=== PATIENT | male | born 1980 | race African-American/Black ===

== ENCOUNTER 2018-03-30 08:50 | Emergency (ER) | payer BC ==
[2018-03-30 09:20] LABS: Urine Blood 2+ (NEG); Urine Glucose NEGATIVE (NEG); Urine Protein 1+ (NEG)
[2018-03-30] MEDS ORDERED: KETOROLAC 30 MG/ML INJ ONE (09:37)
[2018-03-30 09:49] LABS: Urine Bacteria <20 /HPF (NONE SEEN); Urine Culture Reflex Order REFLEXED; Urine Trichomonas PRESENT (NONE SEEN)
--- NOTE | 2018-03-30 10:40 | EDPHYS ---
Physician Documentation [facility] Name: Bj Stringer II Age: 37 yrs Sex: Male : 1980 Arrival Date: 03/30/2018 Time: 08:53 Bed 20 Private MD: ED Physician Sanjiv Powell HPI: 03/30 09:05 This 37 yrs old Black Male presents to ER via Ambulatory with complaints of Back Pain. cp 09:05 The patient presents with pain that is acute, with no known mechanism of injury. The cp symptoms are located in the low back. 09:05 Onset: The symptoms/episode began/occurred 1 week(s) ago. cp 09:05 The pain radiates to the back of bilateral legs. Associated signs and symptoms: cp Pertinent positives: tingling, Pertinent negatives: abdominal pain, constipation, dysuria, fever, hematuria, incontinence, numbness, urinary retention, weakness. Severity of symptoms: in the emergency department the symptoms are unchanged, despite home interventions. Historical: - Allergies: 09:00 No Known Allergies; hb - Home Meds: 09:00 None [Active]; hb - PMHx: 09:00 None; hb - PSHx: 09:00 Finger - Left Ring, Right Index; hb - Immunization history:: Adult Immunizations up to date. - Social history:: Smoking status: Patient uses tobacco products, smokes one pack cigarettes per day. - Ebola Screening: : No symptoms or risks identified at this time. ROS: 09:10 Constitutional: Negative for chills, fever, poor PO intake. cp 09:10 Eyes: Negative for injury, pain, redness, and discharge. cp 09:10 ENT: Negative for drainage from ear(s), ear pain, sore throat, difficulty swallowing, difficulty handling secretions. 09:10 Cardiovascular: Negative for chest pain, edema, palpitations. 09:10 Respiratory: Negative for cough, shortness of breath, wheezing. 09:10 Abdomen/GI: Negative for abdominal pain, nausea, vomiting, and diarrhea, black/tarry stool, rectal bleeding, bowel incontinence. 09:10 Back: Positive for pain at rest, pain with movement, of the low back area, Negative for injury or acute deformity, decreased range of motion. 09:10 : Negative for urinary symptoms, hematuria, difficulty urinating, bladder incontinence, testicular pain 09:10 Skin: Negative for cellulitis, rash. 09:10 Neuro: Positive for tingling, of the right foot and left foot, Negative for altered mental status, dizziness, numbness, weakness. 09:10 All other systems are negative. Exam: 09:17 Constitutional: The patient appears in no acute distress, alert, awake, non-toxic, well cp developed, well nourished. 09:17 Head/Face: Normocephalic, atraumatic. cp 09:17 Eyes: Periorbital structures: appear normal, Conjunctiva: normal, no exudate, no injection, Sclera: no appreciated abnormality, Lids and lashes: appear normal, bilaterally. 09:17 ENT: External ear(s): are unremarkable, Nose: is normal, Mouth: Lips: moist, Oral mucosa: pink and intact, moist, Posterior pharynx: is normal, airway is patent, no erythema, no exudate. 09:17 Neck: ROM/movement: is normal, is supple, without pain, no range of motions limitations, no nuchal rigidity. 09:17 Chest/axilla: Inspection: normal, Palpation: is normal, no crepitus, no tenderness. 09:17 Cardiovascular: Rate: normal, Rhythm: regular, Edema: is not appreciated. 09:17 Respiratory: the patient does not display signs of respiratory distress, Respirations: normal, no use of accessory muscles, no retractions, no splinting, no tachypnea, labored breathing, is not present, Breath sounds: are clear throughout, no decreased breath sounds, no stridor, no wheezing. 09:17 Abdomen/GI: Inspection: abdomen appears normal, Palpation: abdomen is soft and non-tender, in all quadrants, rebound tenderness, is not appreciated, involuntary guarding, is not appreciated. 09:17 Back: pain, that is moderate, of the low back area, ROM is normal, CVA tenderness, is absent, Straight leg raises: of both lower extremities does not illicit pain. 09:17 Musculoskeletal/extremity: Exam is negative for decreased range of motion, deformity, injury. 09:17 Skin: cellulitis, is not appreciated, no rash present. 09:17 Neuro: Orientation: to person, place \T\ time. Mentation: is normal, Motor: moves all fours, strength is normal, Sensation: no obvious gross deficits, Gait: is steady, Deep tendon reflexes are 2+ (normal) in the right patellar, right Achilles, left patellar and left Achilles. Vital Signs: 09:00 BP 157 / 100; Pulse 86; Resp 16; Temp 98.1; Pulse Ox 100% on R/A; Pain 10/10; hb 10:30 BP 126 / 99; Pulse 73; Resp 18; Pulse Ox 99% on R/A; Pain 4/10; em MDM: 09:01 Patient medically screened. cp 09:30 Differential diagnosis: chronic back pain, Pyelonephritis ruptured disc, sciatica, cp spinal stenosis, cauda equina. 10:39 Data reviewed: vital signs, nurses notes, lab test result(s), radiologic studies, plain cp films. 10:39 Test interpretation: by ED physician or midlevel provider: plain radiologic studies. cp Counseling: I had a detailed discussion with the patient and/or guardian regarding: the historical points, exam findings, and any diagnostic results supporting the discharge/admit diagnosis, lab results, radiology results, the need for outpatient follow up, a family practitioner, to return to the emergency department if symptoms worsen or persist or if there are any questions or concerns that arise at home. 03/30 09:12 Order name: Urine Microscopic Only; Complete Time: 10:27 03/30 09:16 Order name: Urine Dipstick--Ancillary (enter results); Complete Time: 09:26 03/30 09:26 Interpretation: Normal except: UBLD 2+; UPROT 1+; UESTR TRACE. 03/30 09:27 Order name: XRAY Lumbar Spine (3 Views); Complete Time: 10:41 03/30 10:42 Interpretation: Report reviewed. 03/30 09:50 Order name: Urine Culture [facility] 03/30 09:02 Order name: Urine Dipstick-Ancillary (obtain specimen); Complete Time: 09:21 cp Administered Medications: 09:33 Drug: TORadol 60 mg Route: IM; Site: left gluteus; ch 10:42 Follow up: Response: No adverse reaction em 10:42 Drug: metroNIDAZOLE 2 grams Route: PO; em 11:07 Follow up: Response: No adverse reaction em 10:42 Drug: Zithromax 1 grams Route: PO; em 11:07 Follow up: Response: No adverse reaction em 10:50 Drug: Rocephin (cefTRIAXone) 250 mg Route: IM; Site: right deltoid; em 11:06 Follow up: Response: No adverse reaction em Disposition: 17:44 Co-signature as Attending Physician, Sanjiv Powell MD. rn Disposition: 03/30/18 10:39 Discharged to Home. Impression: Sciatica, Trichomoniasis. - Condition is Stable. - Discharge Instructions: Sciatica, Trichomoniasis. - Prescriptions for Cyclobenzaprine 10 mg Oral Tablet - take 1 tablet by ORAL route every 8 hours As needed no driving while taking medication; 20 tablet. Medrol (Juan) 4 mg Oral Tablets, Dose Pack - take 1 tablet by ORAL route as directed - follow package instructions; 1 packet. - Medication Reconciliation Form, Thank You Letter, Antibiotic Education, Prescription Opioid Use form. - Follow up: Private Physician; When: 2 - 3 days; Reason: Recheck today's complaints. - Problem is new. - Symptoms have improved. Signatures: Dispatcher [employer] Eve Orellana RN RN Olivier Mccarthy, CAR REPOSSESSOR CAR REPOSSESSOR em Sanjiv Powell MD MD rn Page, Corey, PA PA cp Kallie Hidalgo, RN RN Corrections: (The following items were deleted from the chart) 11:08 10:39 03/30/2018 10:39 Discharged to Home. Impression: Sciatica; Trichomoniasis. em Condition is Stable. Forms are Medication Reconciliation Form, Thank You Letter, Antibiotic Education, Prescription Opioid Use. Follow up: Private Physician; When: 2 - 3 days; Reason: Recheck today's complaints. Problem is new. Symptoms have improved. cp
--- NOTE | 2018-03-30 10:40 | ER ---
Nurse's Notes [facility] Name: Bj Stringer II Age: 37 yrs Sex: Male : 1980 Arrival Date: 03/30/2018 Time: 08:53 Bed 20 Private MD: Diagnosis: Sciatica;Trichomoniasis Presentation: 03/30 08:58 Presenting complaint: Patient states: Low back pain x 1 week. 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 Transition of care: patient was not received from another setting of care. Onset of symptoms was March 30, 2018. Risk Assessment: Do you want to hurt yourself or someone else? Patient reports no desire to harm self or others. Initial Sepsis Screen: Does the patient meet any 2 criteria? No. Patient's initial sepsis screen is negative. Does the patient have a suspected source of infection? No. Patient's initial sepsis screen is negative. Care prior to arrival: None. 08:58 Method Of Arrival: Ambulatory 08:58 Acuity: JOON 4 hb Historical: - Allergies: 09:00 No Known Allergies; hb - Home Meds: 09:00 None [Active]; hb - PMHx: 09:00 None; hb - PSHx: 09:00 Finger - Left Ring, Right Index; hb - Immunization history:: Adult Immunizations up to date. - Social history:: Smoking status: Patient uses tobacco products, smokes one pack cigarettes per day. - Ebola Screening: : No symptoms or risks identified at this time. Screenin:01 Abuse screen: Denies threats or abuse. Denies injuries from another. Nutritional hb screening: No deficits noted. Tuberculosis screening: No symptoms or risk factors identified. Fall Risk None identified. Assessment: 09:02 General: Appears in no apparent distress. uncomfortable, Behavior is calm, cooperative. em Pain: Complains of pain in lumbar area Pain currently is 10 out of 10 on a pain scale. Neuro: Level of Consciousness is awake, alert, obeys commands, Oriented to person, place, time, situation, Reports numbness in right leg and left leg paresthesias in right leg and left leg. Cardiovascular: Capillary refill < 3 seconds Patient's skin is warm and dry. Respiratory: Airway is patent Respiratory effort is even, unlabored, Respiratory pattern is regular, symmetrical. GI: Abdomen is flat. : Urine is clear. EENT: No signs and/or symptoms were reported regarding the EENT system. Derm: Skin is intact, Skin is pink, warm \T\ dry. Musculoskeletal: Capillary refill < 3 seconds, Range of motion: intact in all extremities. 09:15 Reassessment: I agree with previous assessment. hb 10:30 Reassessment: Patient appears in no apparent distress at this time. Patient and/or em family updated on plan of care and expected duration. Pain level reassessed. Patient is alert, oriented x 3, equal unlabored respirations, skin warm/dry/pink. rates pain 4/10. Vital Signs: 09:00 BP 157 / 100; Pulse 86; Resp 16; Temp 98.1; Pulse Ox 100% on R/A; Pain 10/10; hb 10:30 BP 126 / 99; Pulse 73; Resp 18; Pulse Ox 99% on R/A; Pain 4/10; em ED Course: 08:53 Patient arrived in ED. as 08:58 Olivier Mccarthy LVN is Primary Nurse. em 08:58 Shawn Edgar PA is PHCP. cp 08:58 Sanjiv Powell MD is Attending Physician. cp 09:00 Triage completed. hb 09:00 Arm band placed on right wrist. hb 09:01 Patient has correct armband on for positive identification. Bed in low position. Call em light in reach. 10:12 X-ray completed. Patient tolerated procedure well. Patient moved back from radiology. kw 10:13 XRAY Lumbar Spine (3 Views) In Process Unspecified. EDMS 11:07 No provider procedures requiring assistance completed. Patient did not have IV access em during this emergency room visit. Administered Medications: 09:33 Drug: TORadol 60 mg Route: IM; Site: left gluteus; ch 10:42 Follow up: Response: No adverse reaction em 10:42 Drug: metroNIDAZOLE 2 grams Route: PO; em 11:07 Follow up: Response: No adverse reaction em 10:42 Drug: Zithromax 1 grams Route: PO; em 11:07 Follow up: Response: No adverse reaction em 10:50 Drug: Rocephin (cefTRIAXone) 250 mg Route: IM; Site: right deltoid; em 11:06 Follow up: Response: No adverse reaction em Outcome: 10:39 Discharge ordered by . cp 11:07 Discharged to home ambulatory, with family. em 11:07 Condition: good 11:07 Discharge instructions given to patient, Instructed on discharge instructions, follow up and referral plans. medication usage, Demonstrated understanding of instructions, follow-up care, medications, Prescriptions given X 2. 11:08 Patient left the ED. em Signatures: Dispatcher [employer] Eve Orellana, RN RN Olivier Mccarthy, YULIANA PINEDAN em Carmen Chang Kimberlee kw Page, Corey, Kallie Bertrand cp, RN RN hb
--- NOTE | 2018-03-30 10:41 | RAD REPORT ---
EXAM DESCRIPTION: RAD - Lumbar Spine 3 Views - 03/30/2018 10:20 am CLINICAL HISTORY: Back pain FINDINGS: The alignment of the lumbar spine is satisfactory. No fracture or dislocation is seen. No significant bone or joint abnormality is seen
[2018-03-30] MEDS ORDERED: LIDOCAINE 1% MPF 2 ML AMPULE ONE (10:43)
[2018-03-30] MEDS ORDERED: AZITHROMYCIN 250 MG TAB ONE (10:43)
[2018-03-30] MEDS ORDERED: metroNIDAZOLE 500 MG TABLET ONE (10:43)
[2018-03-30] MEDS ORDERED: CEFTRIAXONE 250 MG/VIAL ONE (10:43)
== END 2018-03-30 11:08 | disposition home or self-care (01) ==
LOC: ER 08:50
DX: M54.30 Sciatica, unspecified side (principal); A59.9 Trichomoniasis, unspecified; F17.210 Nicotine dependence, cigarettes, uncomplicated
CPT/HCPCS: 72100; 81003; 81015; 87086; 87088; 96372; 99283; J0696; J2001

== ENCOUNTER 2018-04-20 19:08 | Emergency (ER) | payer BC ==
--- NOTE | 2018-04-20 21:03 | RAD REPORT ---
EXAM DESCRIPTION: RAD - Hand Right 3 View - 04/20/2018 7:50 pm CLINICAL HISTORY: Hand pain following trauma COMPARISON: None. FINDINGS: No fracture is identified. There is no dislocation or periosteal reaction noted. No forei gn body or other soft tissue abnormality. Patient is flexed at the second PIP joint. The ventral side bone avulsion is not identified. This may be baseline for the patient. IMPRESSION: Negative right hand examination. Repeat imaging in 7 days can be performed if the patien t continues to have symptoms concerning for fracture.
--- NOTE | 2018-04-20 21:08 | EDPHYS ---
Physician Documentation [facility] Name: Bj Stringer II Age: 37 yrs Sex: Male : 1980 Arrival Date: 04/20/2018 Time: 19:11 Bed 6 Private MD: ED Physician Sanjiv Powell HPI: 04/20 20:40 This 37 yrs old Black Male presents to ER via Ambulatory with complaints of Hand Injury.cp 20:40 The patient or guardian reports injury, pain, swelling, tenderness. The complaints cp affect the right hand diffusely. 20:40 Context: resulted from a crush injury, heavy door. cp 20:40 Onset: The symptoms/episode began/occurred this morning. cp 20:40 Associated signs and symptoms: Pertinent negatives: cyanosis distally, numbness cp distally. Historical: - Allergies: 19:23 No Known Allergies; aj - Home Meds: 19:23 None [Active]; aj - PMHx: 19:23 None; aj - PSHx: 19:23 None; aj - Immunization history:: Adult Immunizations up to date. - Social history:: Smoking status: Patient uses tobacco products, smokes one pack cigarettes per day. Patient uses street drugs, marijuana. - Ebola Screening: : Patient negative for fever greater than or equal to 101.5 degrees Fahrenheit, and additional compatible Ebola Virus Disease symptoms Patient denies exposure to infectious person Patient denies travel to an Ebola-affected area in the 21 days before illness onset No symptoms or risks identified at this time. ROS: 20:45 Constitutional: Negative for body aches, chills, fever, poor PO intake. cp 20:45 ENT: Negative for drainage from ear(s), ear pain, sore throat, difficulty swallowing, cp difficulty handling secretions. 20:45 Respiratory: Negative for cough, shortness of breath, wheezing. 20:45 Abdomen/GI: Negative for abdominal pain, nausea, vomiting, and diarrhea. 20:45 Back: Negative for pain at rest, pain with movement, radiated pain. 20:45 MS/extremity: Positive for pain, swelling, tenderness, of the right hand, Negative for decreased range of motion, deformity, paresthesias. 20:45 Skin: Negative for cellulitis, rash. 20:45 All other systems are negative. Exam: 20:48 Constitutional: The patient appears in no acute distress, alert, awake, well developed, cp well nourished. 20:48 Head/Face: Normocephalic, atraumatic. cp 20:48 Eyes: Periorbital structures: appear normal, Conjunctiva: normal, no exudate, no injection, Lids and lashes: appear normal, bilaterally. 20:48 ENT: External ear(s): are unremarkable, Nose: is normal, Mouth: Lips: moist, Oral mucosa: moist, Posterior pharynx: is normal, airway is patent. 20:48 Chest/axilla: Inspection: normal. 20:48 Cardiovascular: Rate: normal, Rhythm: regular. 20:48 Respiratory: the patient does not display signs of respiratory distress, Respirations: normal, no use of accessory muscles, no retractions, no splinting, no tachypnea. 20:48 Abdomen/GI: Inspection: abdomen appears normal. 20:48 Musculoskeletal/extremity: Extremities: grossly normal except: noted in the dorsum of right hand: pain, swelling, tenderness, There is no evidence of decreased ROM, deformity, Perfusion: the extremity is normally perfused throughout, Sensation intact. 20:48 Skin: cellulitis, is not appreciated, no rash present. Vital Signs: 19:23 BP 136 / 97; Pulse 74; Resp 20; Temp 98.8; Pulse Ox 98% on R/A; Weight 68.04 kg; Height aj 5 ft. 3 in. (160.02 cm); 19:23 Body Mass Index 26.57 (68.04 kg, 160.02 cm) aj Procedures: 21:25 Splinting: Splint applied to right hand using Orthoglass splint, ulna gutter type. cp applied by tech. Examined by me, post splint application: neurovascular intact, Patient tolerated well. MDM: 20:37 Patient medically screened. cp 21:07 Data reviewed: vital signs, nurses notes, radiologic studies, plain films, and as a cp result, I will discharge patient. 21:07 Differential diagnosis: dislocation, closed fracture, contusion. Test interpretation: cp by ED physician or midlevel provider: plain radiologic studies. Counseling: I had a detailed discussion with the patient and/or guardian regarding: the historical points, exam findings, and any diagnostic results supporting the discharge/admit diagnosis, radiology results, to return to the emergency department if symptoms worsen or persist or if there are any questions or concerns that arise at home. Response to treatment: the patient's symptoms have markedly improved after treatment. 04/20 19:22 Order name: XRAY Hand RIGHT 3 View; Complete Time: 21:04 04/20 21:04 Interpretation: Report reviewed. cp 04/20 20:53 Order name: Splint - Ulnar Gutter; Complete Time: 21:19 cp Administered Medications: 21:10 Drug: Ibuprofen 800 mg Route: PO; lp1 21:20 Follow up: Response: Medication administered at discharge. lp1 Disposition: 22:00 Chart complete. cp 22:43 Co-signature as Attending Physician, Sanjiv Powell MD. rn Disposition: 04/20/18 21:07 Discharged to Home. Impression: Contusion of right hand. - Condition is Stable. - Discharge Instructions: Crush Injury of the Hand. - Work release form, Medication Reconciliation Form, Thank You Letter, Antibiotic Education, Prescription Opioid Use form. - Follow up: Tom Aly MD; When: 2 - 3 days; Reason: Recheck today's complaints. - Problem is new. - Symptoms have improved. Signatures: Dispatcher [employer] Trinidad Slater RN RN Sanjiv Powell MD MD rn Patti Mendosa RN RN 1 Shawn Edgar PA PA cp Corrections: (The following items were deleted from the chart) 21:30 21:07 04/20/2018 21:07 Discharged to Home. Impression: Contusion of right hand. lp1 Condition is Stable. Forms are Medication Reconciliation Form, Thank You Letter, Antibiotic Education, Prescription Opioid Use. Follow up: Dr. Tom Aly; When: 2 - 3 days; Reason: Recheck today's complaints. Problem is new. Symptoms have improved. 04/21 12:04 04/20 20:40 Context: resulted from a crush injury, by a house door, cp cp
--- NOTE | 2018-04-20 21:08 | ER ---
Nurse's Notes [facility] Name: Bj Stringer II Age: 37 yrs Sex: Male : 1980 Arrival Date: 04/20/2018 Time: 19:11 Bed 6 Private MD: Diagnosis: Contusion of right hand Presentation: 04/20 19:22 Presenting complaint: Patient states: Right hand pain and swelling after being closed aj in door this AM. Transition of care: patient was not received from another setting of care. Onset of symptoms was April 20, 2018. Risk Assessment: Do you want to hurt yourself or someone else? Patient reports no desire to harm self or others. Initial Sepsis Screen: Does the patient meet any 2 criteria? No. Patient's initial sepsis screen is negative. Does the patient have a suspected source of infection? No. Patient's initial sepsis screen is negative. Care prior to arrival: None. 19:22 Method Of Arrival: Ambulatory aj 19:22 Acuity: JOON 4 aj Triage Assessment: 19:23 General: Appears in no apparent distress. comfortable, Behavior is calm, cooperative, aj appropriate for age. Pain: Complains of pain in right hand. Neuro: Level of Consciousness is awake, alert, obeys commands, Oriented to person, place, time, situation, Appropriate for age. Respiratory: Airway is patent Respiratory effort is even, unlabored, Respiratory pattern is regular, symmetrical. Derm: Skin is intact, is healthy with good turgor, Skin is pink, warm \T\ dry. normal. Musculoskeletal: Circulation, motion, and sensation intact. Range of motion: intact in all extremities, Swelling present in right hand Reports pain in right hand. 21:13 Injury Description: Bruise sustained to right hand is Swelling noted to right hand lp1 dorsum aspect. Historical: - Allergies: 19:23 No Known Allergies; aj - Home Meds: 19:23 None [Active]; aj - PMHx: 19:23 None; aj - PSHx: 19:23 None; aj - Immunization history:: Adult Immunizations up to date. - Social history:: Smoking status: Patient uses tobacco products, smokes one pack cigarettes per day. Patient uses street drugs, marijuana. - Ebola Screening: : Patient negative for fever greater than or equal to 101.5 degrees Fahrenheit, and additional compatible Ebola Virus Disease symptoms Patient denies exposure to infectious person Patient denies travel to an Ebola-affected area in the 21 days before illness onset No symptoms or risks identified at this time. Screenin:12 Abuse screen: Denies threats or abuse. Denies injuries from another. Nutritional lp1 screening: No deficits noted. Tuberculosis screening: No symptoms or risk factors identified. Fall Risk None identified. Assessment: 21:00 General: Appears in no apparent distress. Behavior is appropriate for age. Pain: lp1 Complains of pain in right hand Pain currently is 7 out of 10 on a pain scale. Quality of pain is described as aching. Neuro: Level of Consciousness is awake, alert, obeys commands. Cardiovascular: No deficits noted. Respiratory: No deficits noted. GI: No deficits noted. : No deficits noted. EENT: No deficits noted. Derm: No deficits noted. Musculoskeletal: Swelling present in dorsum of right hand. Vital Signs: 19:23 BP 136 / 97; Pulse 74; Resp 20; Temp 98.8; Pulse Ox 98% on R/A; Weight 68.04 kg; Height aj 5 ft. 3 in. (160.02 cm); 19:23 Body Mass Index 26.57 (68.04 kg, 160.02 cm) aj ED Course: 19:11 Patient arrived in ED. ag3 19:23 Triage completed. aj 19:23 Arm band placed on left wrist. Patient placed in waiting room, Patient notified of wait aj time. 19:24 X-ray ordered. aj 19:46 X-ray completed. Portable x-ray completed in exam room. Patient tolerated procedure ls3 well. 19:50 XRAY Hand RIGHT 3 View In Process Unspecified. EDMS 20:37 Shawn Edgar PA is PHCP. cp 20:37 Sanjiv Powell MD is Attending Physician. cp 21:06 Tom Aly MD is Referral Physician. cp 21:11 Patti Mendosa, CHANDU is Primary Nurse. lp1 21:13 Patient has correct armband on for positive identification. lp1 21:13 No provider procedures requiring assistance completed. Patient did not have IV access lp1 during this emergency room visit. 21:19 Orthoglass splint: Ulnar gutter/Boxer splint applied on right forearm. ds4 Administered Medications: 21:10 Drug: Ibuprofen 800 mg Route: PO; lp1 21:20 Follow up: Response: Medication administered at discharge. lp1 Outcome: 21:07 Discharge ordered by . cp 21:15 Discharged to home ambulatory, with significant other. lp1 21:15 Condition: good 21:15 Discharge instructions given to patient, Instructed on discharge instructions, follow up and referral plans. Demonstrated understanding of instructions, follow-up care, splint care. 21:30 Patient left the ED. lp1 Signatures: Dispatcher [employer] EDMS Trinidad Moseley RN RN aj Pena, Laura, RN RN lp1 Dani Lee ds4 Shawn Edgar PA PA cp Siler, Lynzie ls3 Maddie Matthew ag3
[2018-04-20] MEDS ORDERED: IBUPROFEN 400 MG TAB ONE (21:15)
== END 2018-04-20 21:30 | disposition home or self-care (01) ==
LOC: ER 19:08
PROC: 2W3CX1Z Immobilization of Right Lower Arm using Splint (ICD-10-PCS; principal; 2018-04-20)
DX: S60.221A Contusion of right hand, initial encounter (principal); X58.XXXA Exposure to other specified factors, initial encounter; Y93.9 Activity, unspecified; Y92.9 Unspecified place or not applicable; F17.210 Nicotine dependence, cigarettes, uncomplicated
CPT/HCPCS: 99283

== ENCOUNTER 2024-10-05 00:13 | Emergency (ER) | payer BC ==
--- NOTE | 2024-10-05 01:07 | ER ---
Nurse's Notes [facility] Name: Bj Stringer II Age: 44 yrs Sex: Male : 1980 Arrival Date: 10/05/2024 Time: 00:13 Bed 18 Private MD: Diagnosis: Pain in left knee;Fall on same level, unspecified;Unspecified internal derangement of left knee Presentation: 10/05 00:34 Chief complaint: Patient states: I was at a [employer] and i stepped in a pot hole. kd3 I hurt my left knee. Coronavirus screen: Vaccine status: Patient reports being unvaccinated. Ebola Screen: No symptoms or risks identified at this time. Initial Sepsis Screen: Does the patient meet any 2 criteria? No. Patient's initial sepsis screen is negative. Does the patient have a suspected source of infection? No. Patient's initial sepsis screen is negative. Risk Assessment: Do you want to hurt yourself or someone else? Patient reports no desire to harm self or others. Onset of symptoms was October 05, 2024. 00:34 Method Of Arrival: Wheelchair kd3 00:34 Acuity: JOON 4 kd3 Triage Assessment: 00:35 General: Appears uncomfortable, Behavior is calm, cooperative. Pain: Complains of pain kd3 in lateral aspect of left knee, posterior aspect of left knee, medial aspect of left knee and left knee. Historical: - Allergies: 00:35 No Known Allergies; kd3 - Immunization history:: Adult Immunizations up to date. - Infectious Disease History:: Denies. - Social history:: Smoking status: Patient denies any tobacco usage or history of. Screenin:[facility] ED Fall Risk Assessment (Adult) History of falling in the last 3 months, kd3 including since admission Yes- single mechanical fall (1 pt) Confusion or Disorientation No (0 pts) Intoxicated or Sedated No (0 pts) Impaired Gait Mobility Assist Device Used No (0 pt) Altered Elimination No (0 pt) Score/Fall Risk Level 0 - 2 = Low Risk Maintained a safe environment. Abuse screen: Denies threats or abuse. Denies injuries from another. Nutritional screening: No deficits noted. Tuberculosis screening: No symptoms or risk factors identified. Assessment: 02:00 Reassessment: Patient is alert, oriented x 3, equal unlabored respirations, skin kd3 warm/dry/pink. Patient states symptoms have improved. General: Appears in no apparent distress. Behavior is calm, cooperative. Neuro: Level of Consciousness is awake, alert, obeys commands, Oriented to person, place, time, situation. Vital Signs: 00:34 BP 124 / 75; Pulse 93; Resp 16; Temp 98.2(O); Pulse Ox 100% on R/A; Weight 86.18 kg; kd3 Height 5 ft. 3 in. ; 03:28 BP 116 / 90; Pulse 85; Resp 16; Pulse Ox 99% ; cp4 00:34 Body Mass Index 33.66 (86.18 kg, 160.02 cm) kd3 ED Course: 00:16 Patient arrived in ED. gm2 00:33 Joana Ragland, CHANDU is Primary Nurse. kd3 00:35 Triage completed. kd3 00:35 Arm band placed on right wrist. kd3 00:40 Shawn Park MD is Attending Physician. max 01:05 Omkar Altman MD is Referral Physician. max 01:10 Knee Left 3 View XRAY In Process Unspecified. EDMS 02:00 Patient has correct armband on for positive identification. kd3 02:13 Knee Left Wo Con In Process Unspecified. EDMS 03:28 Omkar Altman MD is Referral Physician. max 03:58 Provided Education on: knee pain. cp4 03:58 No provider procedures requiring assistance completed. Patient did not have IV access cp4 during this emergency room visit. Administered Medications: 01:18 Drug: Boostrix Tdap IM 0.5 ml IM once; as a single dose Route: IM; Site: right gluteus; kd3 03:34 Follow up: Response: No adverse reaction cp4 01:18 Drug: Ketorolac IM 60 mg IM once Route: IM; Site: right gluteus; kd3 03:34 Follow up: Response: No adverse reaction cp4 01:18 Drug: [place] PO 10 mg-325 mg 1 tabs PO once Route: PO; kd3 03:34 Follow up: Response: No adverse reaction cp4 Medication: 02:00 VIS not applicable for this client. kd3 Outcome: 01:06 Discharge ordered by . max 03:28 Discharge ordered by . max 03:58 Discharged to home via wheelchair, cp4 03:58 Condition: stable 03:58 Discharge instructions given to patient, family, Instructed on discharge instructions, follow up and referral plans. medication usage, crutch walking, Demonstrated understanding of instructions, follow-up care, medications, crutch walking, Prescriptions given X 2, 03:59 Patient left the ED. cp4 Signatures: Dispatcher [employer] EDShawn Pinto MD MD cha Doucette, Kyli, RN RN magali3 Eve Daniels cp4 Maria Del Rosario Carranza [facility]
--- NOTE | 2024-10-05 01:07 | EDPHYS ---
Physician Documentation [facility] Name: Bj Stringer II Age: 44 yrs Sex: Male : 1980 Arrival Date: 10/05/2024 Time: 00:13 Bed 18 Private MD: ED Physician Shawn Park HPI: 10/05 00:51 This 44 yrs old Black Male presents to ER via Wheelchair with complaints of Fall max Injury, Knee Pain, Leg Swelling. Historical: - Allergies: 00:35 No Known Allergies; kd3 - Immunization history:: Adult Immunizations up to date. - Infectious Disease History:: Denies. - Social history:: Smoking status: Patient denies any tobacco usage or history of. ROS: 00:53 Constitutional: Negative for fever, chills, and weight loss, Eyes: Negative for injury, max pain, redness, and discharge, ENT: Negative for injury, pain, and discharge, Neck: Negative for injury, pain, and swelling, Cardiovascular: Negative for chest pain, palpitations, and edema, Respiratory: Negative for shortness of breath, cough, wheezing, and pleuritic chest pain, Abdomen/GI: Negative for abdominal pain, nausea, vomiting, diarrhea, and constipation, Back: Negative for injury and pain, : Negative for injury, bleeding, discharge, and swelling, Skin: Negative for injury, rash, and discoloration, Neuro: Negative for headache, weakness, numbness, tingling, and seizure, Psych: Negative for depression, anxiety, suicide ideation, homicidal ideation, and hallucinations, Allergy/Immunology: Negative for hives, rash, and allergies, Endocrine: Negative for neck swelling, polydipsia, polyuria, polyphagia, and marked weight changes, Hematologic/Lymphatic: Negative for swollen nodes, abnormal bleeding, and unusual bruising, 00:53 MS/extremity: Positive for decreased range of motion, pain, swelling, tenderness, of the lateral aspect of left knee and left knee, Exam: 00:53 Constitutional: This is a well developed, well nourished patient who is awake, alert, max and in no acute distress. Head/Face: Normocephalic, atraumatic. Eyes: Pupils equal round and reactive to light, extra-ocular motions intact. Lids and lashes normal. Conjunctiva and sclera are non-icteric and not injected. Cornea within normal limits. Periorbital areas with no swelling, redness, or edema. ENT: Nares patent. No nasal discharge, no septal abnormalities noted. Tympanic membranes are normal and external auditory canals are clear. Oropharynx with no redness, swelling, or masses, exudates, or evidence of obstruction, uvula midline. Mucous membranes moist. Neck: Trachea midline, no thyromegaly or masses palpated, and no cervical lymphadenopathy. Supple, full range of motion without nuchal rigidity, or vertebral point tenderness. No Meningismus. Chest/axilla: Normal chest wall appearance and motion. Nontender with no deformity. No lesions are appreciated. Cardiovascular: Regular rate and rhythm with a normal S1 and S2. No gallops, murmurs, or rubs. Normal PMI, no JVD. No pulse deficits. Respiratory: Lungs have equal breath sounds bilaterally, clear to auscultation and percussion. No rales, rhonchi or wheezes noted. No increased work of breathing, no retractions or nasal flaring. Abdomen/GI: Soft, non-tender, with normal bowel sounds. No distension or tympany. No guarding or rebound. No evidence of tenderness throughout. Back: No spinal tenderness. No costovertebral tenderness. Full range of motion. Male : Normal genitalia with no discharge or lesions. Skin: Warm, dry with normal turgor. Normal color with no rashes, no lesions, and no evidence of cellulitis. Neuro: Awake and alert, GCS 15, oriented to person, place, time, and situation. Cranial nerves II-XII grossly intact. Motor strength 5/5 in all extremities. Sensory grossly intact. Cerebellar exam normal. Normal gait. Psych: Awake, alert, with orientation to person, place and time. Behavior, mood, and affect are within normal limits. 00:53 Musculoskeletal/extremity: Circulation is intact in all extremities. Sensation intact. Compartment Syndrome exam of affected extremity: is normal. Weight bearing: is unable to bear weight, DVT Exam: negative Homans' sign noted on exam, no appreciated bluish discoloration, no erythema, no increased warmth, pain, swelling, tenderness, Vital Signs: 00:34 BP 124 / 75; Pulse 93; Resp 16; Temp 98.2(O); Pulse Ox 100% on R/A; Weight 86.18 kg; kd3 Height 5 ft. 3 in. ; 03:28 BP 116 / 90; Pulse 85; Resp 16; Pulse Ox 99% ; cp4 00:34 Body Mass Index 33.66 (86.18 kg, 160.02 cm) kd3 MDM: 00:40 Medical Screening Exam initiated max 00:54 Differential diagnosis: contusion, fracture, laceration, sprain, strain. Data reviewed: [facility] vital signs, nurses notes, radiologic studies, plain films. Consideration of Admission/Observation Escalation of care including admission/observation considered. I considered the following discharge prescriptions or medication management in the emergency department Medications were administered in the Emergency Department. See MAR. Independent interpretation of the following test(s) in the Emergency Department EKG: See my EKG interpretation above. Care significantly affected by the following chronic conditions: Diabetes, Hypertension. 10/05 00:36 Order name: Knee Left 3 View XRAY sb4 10/05 01:30 Order name: Knee Left Wo Con EDMS 10/05 00:51 Order name: Wound Care; Complete Time: 01:00 [facility] 10/05 00:51 Order name: Crutch Training; Complete Time: 03:54 [facility] 10/05 00:51 Order name: Crutches; Complete Time: 03:54 [facility] 10/05 00:51 Order name: Ice pack; Complete Time: 01:00 [facility] 10/05 00:53 Order name: Knee Immobilizer; Complete Time: 03:54 [facility] Administered Medications: 01:18 Drug: Boostrix Tdap IM 0.5 ml IM once; as a single dose Route: IM; Site: right gluteus; kd3 03:34 Follow up: Response: No adverse reaction cp4 01:18 Drug: Ketorolac IM 60 mg IM once Route: IM; Site: right gluteus; kd3 03:34 Follow up: Response: No adverse reaction cp4 01:18 Drug: [place] PO 10 mg-325 mg 1 tabs PO once Route: PO; kd3 03:34 Follow up: Response: No adverse reaction cp4 Disposition Summary: 10/05/24 03:28 Discharge Ordered Notes: Location: Home(10/05/24 03:28) max Problem: new(10/05/24 03:28) max Symptoms: have improved(10/05/24 03:28) max Condition: Stable(10/05/24 03:28) max Diagnosis - Pain in left knee(10/05/24 03:28) max - Fall on same level, unspecified(10/05/24 03:28) max - Unspecified internal derangement of left knee(10/05/24 03:28) max Followup: max - With: Private Physician - When: 2 - 3 days - Reason: Recheck today's complaints, Continuance of care, Re-evaluation by your physician Followup: amx - With: Omkar Altman MD - When: 2 - 3 days - Reason: Recheck today's complaints, Re-evaluation by your physician Discharge Instructions: - Discharge Summary Sheet max - Joint Pain max - Crutch Use, Adult max - How to Use a Knee Brace max - How to Use a Knee Immobilizer max - Crutch Use, Adult, [id number] max - Acute Knee Pain, Adult max - How to Use Cold Therapy, [id number]-[id number] max - How to Use a Knee Immobilizer, [id number] max - How to Use Cold Therapy max - Acute Knee Pain, Adult, Atke-wv-[id number] max Forms: - Medication Reconciliation Form max - Antibiotic Education max - Prescription Opioid Use max - Patient Portal Instructions max - Leadership Thank You Letter max - Work release form cp4 Prescriptions: - Diclofenac Sodium 75 mg Oral Tablet Sustained Release - take 1 tablet ORAL route 2 times per day; 30 tablet; Refills: 0, Product max Selection Permitted - Tylenol-Codeine #3 300mg-30mg Oral tablet - take 2 tablets ORAL route every 6 hours As needed; 20 tablet; Refills: 0, max Product Selection Permitted Signatures: Dispatcher [employer] EDMS Shawn Park MD MD cha Doucette, Kyli RN RN kd3 Eve Daniels cp4 Corrections: (The following items were deleted from the chart) : 01:06 Home max max 01:06 new max max 01:06 have improved max max 01:06 Stable max max 01:06 Fall on same level, unspecified max max 01:06 Pain in left knee max max 01:06 Unspecified internal derangement of left knee max max 01:06 Abrasion, right knee max max 01:11 CT LEFT KNEE WO CONTRAST ordered. EDMS EDMS
[2024-10-05] MEDS ORDERED: HYDROCODONE/APAP 10/325 TAB ONE (01:11)
[2024-10-05] MEDS ORDERED: KETOROLAC 30 MG/ML INJ ONE (01:11)
[2024-10-05] MEDS ORDERED: TDAP (DIPHTH,PERTUSS(ACELL),TET VAC) 0.5 ML VIAL IMVAC ONE (01:12)
--- NOTE | 2024-10-05 03:05 | RAD REPORT ---
EXAM: Knee Left 3 View XR Left Knee 3 Views HISTORY: pain COMPARISON: None TECHNIQUE: Left Knee 3 Views FINDINGS: No fracture or dislocation. No significant sclerotic/lytic bone lesion. Joint spaces unremarkable. Soft tissues unremarkable. IMPRESSION: Normal Left Knee Radiographs. Electronically signed by: Demetrio Medina MD 10/05/2024 01:31 AM CDT RP Due to temporary technical issues with the PACS/[employer] reporting system, reports are being julio d by the in-house radiologist without review as a courtesy to ensure prompt reporting the interpreting radiologist is fully responsible for the content of the report. Transcribed Date/Time: 10/05/2024 3:04 AM
[2024-10-05 04:04] VITALS: TEMP 98.2
[2024-10-05 04:05] VITALS: BP 116/90; O2SAT 99
--- NOTE | 2024-10-05 06:24 | RAD REPORT ---
EXAM: Knee Left Wo Con CT Knee Without Contrast 10/05/2024 at 2: 16 AM HISTORY: fall, pain COMPARISON: Left knee 3 views 10/05/2024 at 1:00 AM TECHNIQUE: Left Knee axial images acquired without contrast. Coronal and sagittal reformats created. Exam performed according to departmental dose-optimization program which includes automated exposure control, adjustment of mA and/or kV according to patient size, and/or use of iterative recon struction technique. FINDINGS: No fracture or dislocation. No significant sclerotic/lytic bone lesion. Small left knee joint effusion. No radiopaque foreign body. IMPRESSION: Small left knee joint effusion.. Electronically signed by: Demetrio Medina MD 10/05/2024 06:06 AM CDT RP Due to temporary technical issues with the PACS/[employer] reporting system, reports are being julio d by the in-house radiologist without review as a courtesy to ensure prompt reporting the interpreting radiologist is fully responsible for the content of the report. Transcribed Date/Time: 10/05/2024 6:23 AM
== END 2024-10-05 03:59 | disposition home or self-care (01) ==
LOC: ER 00:13
DX: M23.92 Unspecified internal derangement of left knee (principal); W18.30XA Fall on same level, unspecified, initial encounter; Z23 Encounter for immunization
CPT/HCPCS: 73700; 90715; 96372; 99284

== ENCOUNTER 2024-10-07 10:33 | Emergency (ER) | payer BC ==
--- NOTE | 2024-10-07 12:04 | RAD REPORT ---
EXAMINATION: US LEFT LOWER EXTREMITY VENOUS DOPPLER CLINICAL INDICATION: [facility] MAIN LLE SWELLING Bed Name: [id number] TECHNIQUE: Complete bilateral duplex sonography of the LEFT lower extremity veins was performed. The examination included compression for vein patency, color Doppler imaging and flow augmentation in response to distal compression of the distal external iliac, common femoral, femoral, popliteal, tibi al, and great and small saphenous veins. COMPARISON: No prior exam. FINDINGS: Duplex sonography testing of the veins of the LEFT lower extremity was performed. Color flow imaging shows all veins to be compressible with [id number]-ar-[id number] color filling. Pulsatile and phasic flow is present within all lower extremity deep and superficial veins examined. IMPRESSION: No evidence of deep venous thrombosis.
--- NOTE | 2024-10-07 12:40 | EDPHYS ---
Physician Documentation [facility] Name: Bj Stringer II Age: 44 yrs Sex: Male : 1980 Arrival Date: 10/07/2024 Time: 10:33 Bed IW1 Private MD: ED Physician Franklin Blackwood HPI: 10/07 11:42 This 44 yrs old Black Male presents to ER via Ambulatory with complaints of knee sp3 swelling. 11:49 44-year-old male with left knee pain and swelling currently in a knee immobilizer. sp3 Patient was seen here 2 days ago for a mechanical fall down some steps where he had knee injury. At that time plain radiograph and CT scan noncontrast of the knee were both negative for fracture and only showed knee effusion. Patient was discharged on Tylenol 3 and has an appointment with orthopedics this Monday. He presents today due to increased swelling and pain and presents because discharge instructions stated to return if swelling became worse. Patient denies any ascending pain, chest pain, shortness of breath or any prior history of DVT or PE.. Historical: - Allergies: 11:08 No Known Allergies; hb - Home Meds: 11:08 None [Active]; hb - PMHx: 11:08 None; hb - PSHx: 11:08 None; hb - Immunization history:: Adult Immunizations up to date. - Infectious Disease History:: Denies. - Social history:: Smoking status: Patient denies any tobacco usage or history of. ROS: 11:49 Constitutional: Negative for fever, chills, and weight loss, Eyes: Negative for injury, sp3 pain, redness, and discharge, ENT: Negative for injury, pain, and discharge, Neck: Negative for injury, pain, and swelling, Cardiovascular: Negative for chest pain, palpitations, and edema, Respiratory: Negative for shortness of breath, cough, wheezing, and pleuritic chest pain, Abdomen/GI: Negative for abdominal pain, nausea, vomiting, diarrhea, and constipation, Back: Negative for injury and pain, Skin: Negative for injury, rash, and discoloration, Neuro: Negative for headache, weakness, numbness, tingling, and seizure, Psych: Negative for depression, anxiety, suicide ideation, homicidal ideation, and hallucinations, Allergy/Immunology: Negative for hives, rash, and allergies, Endocrine: Negative for neck swelling, polydipsia, polyuria, polyphagia, and marked weight changes, Hematologic/Lymphatic: Negative for swollen nodes, abnormal bleeding, and unusual bruising, 11:49 All other systems are negative, Exam: 11:50 Constitutional: This is a well developed, well nourished patient who is awake, alert, sp3 and in no acute distress. Head/Face: Normocephalic, atraumatic. Eyes: Pupils equal round and reactive to light, extra-ocular motions intact. Lids and lashes normal. Conjunctiva and sclera are non-icteric and not injected. Cornea within normal limits. Periorbital areas with no swelling, redness, or edema. Neck: Trachea midline, no thyromegaly or masses palpated, and no cervical lymphadenopathy. Supple, full range of motion without nuchal rigidity, or vertebral point tenderness. No Meningismus. Chest/axilla: Normal chest wall appearance and motion. Nontender with no deformity. No lesions are appreciated. Cardiovascular: Regular rate and rhythm with a normal S1 and S2. No gallops, murmurs, or rubs. Normal PMI, no JVD. No pulse deficits. Respiratory: Lungs have equal breath sounds bilaterally, clear to auscultation and percussion. No rales, rhonchi or wheezes noted. No increased work of breathing, no retractions or nasal flaring. Abdomen/GI: Soft, non-tender, with normal bowel sounds. No distension or tympany. No guarding or rebound. No evidence of tenderness throughout. Back: No spinal tenderness. No costovertebral tenderness. Full range of motion. Skin: Warm, dry with normal turgor. Normal color with no rashes, no lesions, and no evidence of cellulitis. Neuro: Awake and alert, GCS 15, oriented to person, place, time, and situation. Cranial nerves II-XII grossly intact. Motor strength 5/5 in all extremities. Sensory grossly intact. Cerebellar exam normal. Normal gait. Psych: Awake, alert, with orientation to person, place and time. Behavior, mood, and affect are within normal limits. 11:50 Musculoskeletal/extremity: Left knee swelling with effusion with swelling extending both mildly superiorly and inferiorly. No calf pain noted. Distal neurovascular exam is normal.. Vital Signs: 11:07 BP 167 / 98; Pulse 79; Resp 16; Temp 98.5(O); Pulse Ox 100% on R/A; Weight 81.65 kg; hb Height 5 ft. 3 in. ; Pain 8/10; 11:07 Body Mass Index 31.89 (81.65 kg, 160.02 cm) hb 11:07 Pain Scale: Adult hb MDM: 11:09 Medical Screening Exam initiated sp3 11:51 Data reviewed: vital signs, nurses notes, old medical records, radiologic studies. ED sp3 course: 44-year-old male with left knee pain and swelling after injury 2 days ago. Patient already has orthopedic consultation and has had negative imaging in terms of bony abnormality. Today we will add ultrasound to ensure no DVT and if negative discharge home to keep appointment for this week.. 12:38 ED course: Ultrasound negative for DVT. We will safely discharge patient home to sp3 continue orthopedic follow-up at this time. Will add tramadol to his pain regimen.. 10/07 11:10 Order name: US Extremity Venous Unilateral Ltd; Complete Time: 12:21 sp3 Administered Medications: No medications were administered Disposition Summary: 10/07/24 12:39 Discharge Ordered Notes: Location: Home sp3 Condition: Stable sp3 Diagnosis - Left knee effusion secondary to trauma sp3 Followup: sp3 - With: Private Physician - When: Upon discharge from the Emergency Department - Reason: Continuance of care Discharge Instructions: - Discharge Summary Sheet sp3 - Knee Effusion sp3 - How to Use a Knee Immobilizer sp3 Forms: - Work release form ll1 - Medication Reconciliation Form sp3 - Antibiotic Education sp3 - Prescription Opioid Use sp3 - Patient Portal Instructions sp3 - Leadership Thank You Letter sp3 Prescriptions: - Tramadol 50 mg Oral Tablet - take 1 tablet ORAL route every 8 hours as needed; 12 tablet; Refills: 0, sp3 Product Selection Permitted Signatures: Dispatcher [employer] EDKallie Ram RN RN hb Lewis, Lynsay, RN RN ll1 Franklin Blackwood MD MD sp3
--- NOTE | 2024-10-07 12:40 | ER ---
Nurse's Notes [facility] Name: Bj Stringer II Age: 44 yrs Sex: Male : 1980 Arrival Date: 10/07/2024 Time: 10:33 Bed IW1 Private MD: Diagnosis: Left knee effusion secondary to trauma Presentation: 10/07 11:07 Chief complaint: Worsening right knee pain and swelling after fall 2 days ago. hb 11:07 Coronavirus screen: At this time, the client does not indicate any symptoms associated hb with coronavirus-19. Ebola Screen: No symptoms or risks identified at this time. Initial Sepsis Screen: Does the patient meet any 2 criteria? No. Patient's initial sepsis screen is negative. Does the patient have a suspected source of infection? No. Patient's initial sepsis screen is negative. Risk Assessment: Do you want to hurt yourself or someone else? Patient reports no desire to harm self or others. Onset of symptoms was October 05, 2024. 11:07 Method Of Arrival: Ambulatory hb 11:07 Acuity: JOON 4 hb Historical: - Allergies: 11:08 No Known Allergies; hb - Home Meds: 11:08 None [Active]; hb - PMHx: 11:08 None; hb - PSHx: 11:08 None; hb - Immunization history:: Adult Immunizations up to date. - Infectious Disease History:: Denies. - Social history:: Smoking status: Patient denies any tobacco usage or history of. Screenin:47 [facility] ED Fall Risk Assessment (Adult) History of falling in the last 3 months, ll1 including since admission No falls in past 3 months (0 pts) Confusion or Disorientation No (0 pts) Intoxicated or Sedated No (0 pts) Impaired Gait Yes (1 pt) Mobility Assist Device Used Yes (1 pt) Altered Elimination No (0 pt) Score/Fall Risk Level 0 - 2 = Low Risk Maintained a safe environment, Hourly rounding (assess needs \T\ fall precautionary measures) done. Abuse screen: Denies threats or abuse. Nutritional screening: No deficits noted. Tuberculosis screening: No symptoms or risk factors identified. Assessment: 12:47 General: Appears in no apparent distress. Behavior is calm, cooperative, appropriate ll1 for age. Pain: Complains of pain in L knee Quality of pain is described as aching. Musculoskeletal: Circulation, motion, and sensation intact. Capillary refill < 3 seconds, in left toes. Reports pain in L knee. Vital Signs: 11:07 BP 167 / 98; Pulse 79; Resp 16; Temp 98.5(O); Pulse Ox 100% on R/A; Weight 81.65 kg; hb Height 5 ft. 3 in. ; Pain 8/10; 11:07 Body Mass Index 31.89 (81.65 kg, 160.02 cm) hb 11:07 Pain Scale: Adult hb ED Course: 10:36 Patient arrived in ED. al6 10:37 Franklin Blackwood MD is Attending Physician. sp3 11:08 Triage completed. hb 11:43 US Extremity Venous Unilateral Ltd In Process Unspecified. EDMS 12:48 Arm band placed on left wrist. ll1 12:48 Patient has correct armband on for positive identification. Provided Education on: ll1 return to ED for worsening symptoms. 12:48 No provider procedures requiring assistance completed. Patient did not have IV access ll1 during this emergency room visit. Administered Medications: No medications were administered Medication: 12:49 VIS not applicable for this client. ll1 Outcome: 12:39 Discharge ordered by . sp3 12:48 Discharged to home via wheelchair, ll1 12:48 Condition: stable 12:48 Discharge instructions given to patient, Instructed on discharge instructions, follow up and referral plans. medication usage, Demonstrated understanding of instructions, follow-up care, medications, Prescriptions given X 1, 13:04 Patient left the ED. ld1 Signatures: Dispatcher [employer] EDMS Kallie Hidalgo RN RN Donta Lorenzo RN RN 1 Nova Mendez RN RN ld1 Franklin Blackwood MD MD sp3 Yokasta Medina al6 Corrections: (The following items were deleted from the chart) 11:08 11:07 Chief complaint: Worsening right knee pain and swelling after fall 10 days ago. hbhb
[2024-10-07 13:08] VITALS: BP 167/98; TEMP 98.5; O2SAT 100
== END 2024-10-07 13:04 | disposition home or self-care (01) ==
LOC: ER 10:33
DX: M25.462 Effusion, left knee (principal)
CPT/HCPCS: 93971; 99283